=== PATIENT | male | born 1995 | race Caucasian/White ===

== ENCOUNTER 2017-03-30 06:15 | Emergency (ER) | payer OTHER ==
[~2017-03-30] VITALS: Ht 185.4 cm; Wt 124.7 kg
[2017-03-30 06:22] VITALS: BP 152/81
== END 2017-03-30 08:17 | disposition home or self-care (01) ==
LOC: ED 06:15
DX: R09.1 Pleurisy (principal); J18.9 Pneumonia, unspecified organism; J93.9 Pneumothorax, unspecified; F10.10 Alcohol abuse, uncomplicated

== ENCOUNTER → 2018-11-16 | Outpatient (CLI) | payer OTHER | END | disposition home or self-care (01) | LOC: CT 14:00 | DX: R10.84 Generalized abdominal pain (principal) ==

== ENCOUNTER → 2018-12-02 | Outpatient (CLI) | payer OTHER | END | disposition home or self-care (01) | LOC: NM 07:00 | DX: R10.84 Generalized abdominal pain (principal) ==